=== PATIENT | male | born 2000 ===

== ENCOUNTER 2018-04-03 10:03 | Emergency (ER) | payer MEDICAID ==
[2018-04-03 10:58] VITALS: BP 113/62
[2018-04-03] MEDS ORDERED: BOOSTRIX IM ONE (10:59)
--- NOTE | 2018-04-03 11:00 | Emergency Department Report ---
ED Laceration HPI - HPI Chief Complaint: Laceration/Recheck/Suture Stated Complaint: CUT RT HAND Time Seen by Provider: 04/03/18 10:43 Occurred When: Today Location: Upper Extremity Severity: mild Tetanus Status: Not up to Date Laceration Symptoms: Yes Pain, No Foreign Body Sensation, No Numbness, No Weakness Other History: This is a 17-year-old male nontoxic, well nourished in appearance , no acute signs of distress presents to the ED with c/o of right index finger laceration that occurred this morning. Patient stated that he was cutting grass with malou and caused the lac. Patient denies any other trauma. Denies decreased sensation or range of motion. Denies any fever, chills, nausea , vomiting, chest pain, shortness of breath, headache or stiff neck. Patient denies any allergies or significant past medical history. Stated tetnus UTD. ED Review of Systems ROS: Stated complaint: CUT RT HAND Other details as noted in HPI Constitutional: denies: chills, fever Eyes: denies: eye pain, eye discharge, vision change ENT: denies: ear pain, throat pain Respiratory: denies: cough, shortness of breath, wheezing Cardiovascular: denies: chest pain, palpitations Endocrine: no symptoms reported Gastrointestinal: denies: abdominal pain, nausea, diarrhea Genitourinary: denies: urgency, dysuria Musculoskeletal: denies: back pain, joint swelling, arthralgia Skin: denies: rash, lesions Neurological: denies: headache, weakness, paresthesias Psychiatric: denies: anxiety, depression Hematological/Lymphatic: denies: easy bleeding, easy bruising ED Past Medical Hx - Past Medical History Previous Medical History?: No - Surgical History Past Surgical History?: No - Social History Smoking Status: Current Every Day Smoker Substance Use Type: Alcohol - Medications Home Medications: Home Medications Medication Instructions Recorded Confirmed Last Taken Type Acetaminophen/Codeine [Tylenol 1 tab PO Q6H PRN #12 tab 04/03/18 Unknown Rx /Codeine # 3 tab] Sulfamethoxazole/Trimethoprim 1 each PO BID #14 tablet 04/03/18 Unknown Rx [Bactrim DS TAB] Laceration Physical Exam - Exam General: Vital signs noted. No distress. Alert and acting appropriately. Wound Length (cm): 1 (distal superfical lac) Laceration Location: Upper Extremity Laceration Exam: Yes Normal Distal CMS, No Foreign Body, No Exposed Tendon, Vessel, or Nerve, No Tendon Injury ED Course Vital Signs 04/03/18 10:26 Temperature 97.5 F L Pulse Rate 86 Respiratory 20 Rate Blood Pressure 113/62 Blood Pressure 113/62 [Left] O2 Sat by Pulse 98 Oximetry - Reevaluation(s) Reevaluation #1: 04/03/18 11:00 Patient is speaking in full sentences with no signs of distress noted. - Laceration /Wound Repair Right Finger Wound Location: upper extremity Wound Length (cm): 1 Wound's Depth, Shape: superficial Wound Explored: clean Irrigated w/ Saline (ccs): 40 Betadine Prep?: Yes Wound Repaired With: Dermabond Layer Closure?: No Sterile Dressing Applied?: Yes Progress: Patient first soaked finger with betadine and sterile water. Under sterile field, I used Betadine to clean the area. I then used 40 mL of normal saline to flush the area. I did use Dermabond to approximate the laceration. I then applied a sterile 4 x 4 with tape. Minimal bleeding noted but is under control. Patient tolerated procedure well with no signs of distress. ED Medical Decision Making - Medical Decision Making This is a 17-year-old male that presents with laceration. Patient is stable and was examined by me. The laceration has been performed with Dermabond and sterile dressing has been applied. Patient was educated on proper wound care. Patient is discharged with Bactrim and Tylenol with codeine and was instructed not to operate any machinery while taking Tylenol with codeine due to drowsiness. Patient also received a finger metal splint for not to bend finger until dermabond removed. Patient was instructed to refer to Follow-up with a primary care doctor in 3-5 days or if symptoms worsen and continue return to emergency room as soon as possible. At time of discharge, the patient does not seem toxic or ill in appearance. No acute signs of distress noted. Patient agrees to discharge treatment plan of care. No further questions noted by the patient. Critical care attestation.: If time is entered above; I have spent that time in minutes in the direct care of this critically ill patient, excluding procedure time. ED Disposition Clinical Impression: Laceration Disposition: DC-01 TO HOME OR SELFCARE Is pt being admited?: No Does the pt Need Aspirin: No Condition: Stable Instructions: Acetaminophen/Codeine (By mouth), Laceration (ED), Skin Adhesive Care (ED) Additional Instructions: Follow-up with a primary care doctor in 3-5 days or if symptoms worsen and continue return to emergency room as soon as possible. Do not operate any machinery while taking Tylenol with codeine as this may cause drowsiness. Prescriptions: Acetaminophen/Codeine [Tylenol /Codeine # 3 tab] 1 tab PO Q6H PRN #12 tab PRN Reason: Pain , Severe (7-10) Sulfamethoxazole/Trimethoprim [Bactrim DS TAB] 1 each PO BID #14 tablet Referrals: PRIMARY CARE, [Primary Care Provider] - 3-5 Days SHAYY THOMAS MD [Staff Physician] - 3-5 Days [facility] [Outside] - 3-5 Days [facility] [Outside] - 3-5 Days Forms: Work/School Release Form(ED)
== END 2018-04-03 11:40 | disposition home or self-care (01) ==
LOC: ED 10:03
DX: S61.210A Laceration without foreign body of right index finger without damage to nail, initial encounter (principal); F17.200 Nicotine dependence, unspecified, uncomplicated; W26.8XXA Contact with other sharp object(s), not elsewhere classified, initial encounter; Y93.89 Activity, other specified; Y92.89 Other specified places as the place of occurrence of the external cause; Y99.8 Other external cause status
CPT/HCPCS: 90715; 99282